=== PATIENT | male | born 1955 | race Caucasian/White ===

== ENCOUNTER → 2017-01-06 | Outpatient (CLI) | payer OTHER, BC ==
[~2017-01-06] MED LIST: CYCLOBENZAPRINE5 MG PO; FOLIC ACID1 MG PO; LIPITOR10 MG PO; METHOTREXATE2.5 MG PO; MIRAPEX0.5 MG PO; MOBIC15 MG PO; NORCO 5-325 TA1 EACH PO; PRILOSEC20 MG PO; PRINIVIL (ZESTR20 MG PO; TYLENOL EXTRA500 MG PO
== END | disposition disaster alternative care site (69) ==
LOC: GRAD 13:00
DX: M54.2 Cervicalgia (principal); M43.12 Spondylolisthesis, cervical region; M48.02 Spinal stenosis, cervical region; E04.2 Nontoxic multinodular goiter

== ENCOUNTER 2017-02-04 06:16 | Day surgery (SDC) | payer OTHER, BC ==
[~2017-02-04] VITALS: Ht 180.3 cm; Wt 60.7 kg
--- NOTE | ~2017-02-04 | DS ---
PATIENT'S NAME: CHIVO LOPEZ [facility] AGE: 61 Y [address] ROOM: [place] [address] LOCATION: [facility] [place] ADMIT DATE: 02/04/2017 Discharge Summary DISCHARGE DATE: 02/05/2017 FAMILY PHYSICIAN: Physician, Unknown ATTENDING PHYSICIAN: Candy Mancera REASON FOR ADMISSION: The patient was admitted electively for a scheduled procedure. The patient had presented with neck pain radiating down his upper and lower extremities. 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 Imaging studies showed subluxation of C3 on C4 with spinal stenosis and spinal cord compression. TREATMENT RENDERED: The patient was taken to the operating room and underwent anterior cervical diskectomy and fusion at C3-4. The surgery was uncomplicated. His postoperative course has been very gratifying. His pain has resolved, and he is ambulating independently. His incision is healing well. Postoperative MRI shows satisfactory decompression at C3-4 where he had the stenosis. The patient is ready to be released today and has been discharged home. I will follow him up in 2 weeks' time in Neurosurgery [facility] with repeat x-rays to confirm that the fusion is progressing satisfactorily. MD JANIE LIZARRAGAO/modl /[id number] d: 02/05/17 1354 t: 02/06/17 2249, DISCHARGE SUMMARY
--- NOTE | ~2017-02-04 | OR ---
PATIENT'S NAME: CHIVO LOPEZ [facility] AGE: 61 Y [address] ROOM: [place] [address] LOCATION: G3 ADMIT DATE: 02/04/2017 OR/Procedure Report DISCHARGE DATE: FAMILY PHYSICIAN: PHYSICIAN, UNKNOWN ATTENDING PHYSICIAN: Candy Mancera SURGEON: Candy Mancera MD STEEL DIE PRINTER: Raine Mccall RN. DATE OF PROCEDURE: 02/04/2017 PREOPERATIVE DIAGNOSES: 1. Cervical subluxation at C3-4. 2. Cervical spinal stenosis and spinal cord compression at C3-C4. POSTOPERATIVE DIAGNOSES: 1. Cervical subluxation at C3-4. 2. Cervical spinal stenosis and spinal cord compression at C3-C4. PROCEDURES PERFORMED: 1. Application of cervical traction with Alcocer-Wells tongs for closed reduction of cervical spine. 2. Anterior cervical diskectomy with decompression of neural elements and foraminotomy at C3-4. 3. Structural allograft fusion and morcellized allograft fusion at C3-4. 4. Use of anterior cervical plate by [employer] [place]. 5. Use of operative microscope. ANESTHESIA: General. ANESTHESIA PROVIDER: Amado Arroyo MD HISTORY: The patient is a 61-year-old male who presented with neck pain radiating down his upper extremities as far as the elbow. Imaging studies showed cervical spinal stenosis with spinal cord compression as a result of subluxation at the C3-4 level. The patient was myelopathic with increased reflexes in all limbs. Surgery was recommended to alleviate the spinal cord compression and treat the subluxation. The above procedures, benefits, and risks were discussed with the patient. With his consent, he was brought to the operating room for surgery. PROCEDURE IN DETAIL: In the operating room, the patient was placed in a supine position. Anesthesia was induced and he was intubated. Cervical traction was applied with Alcocer-Wells tongs. A total of 15 pounds weight was attached to the traction. The incision line was marked out on the PATIENT'S NAME: CHIVO LOPEZ [facility] AGE: 61 Y [address] ROOM: [place] [address] LOCATION: [facility] ADMIT DATE: 02/04/2017 OR/Procedure Report DISCHARGE DATE: FAMILY PHYSICIAN: PHYSICIAN, UNKNOWN ATTENDING PHYSICIAN: Candy Mancera anterior surface of the right sternomastoid muscle and the whole area was prepped and draped in a sterile fashion. Local anesthesia was infiltrated. The #15 blade was used to open the skin. The platysma was divided. The anterior border of the sternomastoid muscle was explored until the omohyoid muscle was visible. Dissecting in a plane medial to the carotid artery, but lateral to the esophagus and trachea, a pathway was developed to the anterior surface of the spine. The [employer] handheld retractors were used to help with dissection and visualization. On arrival at the anterior surface of the spine, we could see the prominent C3 vertebra, which was a subluxed one. An x-ray was taken to verify that this was indeed the correct level. The longus colli muscle on each side was undermined and the belt loop cutter retractors were applied. The diskectomy was carried out in the usual fashion by incising the disk with a #15 blade and using the curette to pull out disk material. The curette was used to scrape out more disk, which was removed with a pituitary rongeur. The microscope was brought in at this point, and under microscopic vision, the depths of the disk space were explored. The distraction pins were used to open up the disk space. The posterior longitudinal ligament was very thick and it took a bit of effort to safely divide it until we got to the dura. [place] rongeur was then used to remove the beats of the ligament at C3 and C4. Decompression continued as I felt that the dura was satisfactorily decompressed. The inferior surface of C3 and the superior surface of C4 were then drilled down to expose the bone underneath the endplates. Appropriate-sized piece of allograft bone was selected and the allograft bone was filled with demineralized bone matrix. The bone was then inserted into the C3-4 disc space. Next, appropriate anterior cervical plate was selected and 2 screws were affixed through the plate into C3 and 2 screws into C4. We had a very secure fit. Irrigation was used to wash out the debris and hemostasis was achieved. The incision was closed in layers using appropriate suture materials. A sterile dressing was applied. The patient's anesthesia was reversed. He was extubated and taken to the recovery room to complete his recovery. I was present and performed every aspect of this procedure, assisted at different times by operating room nurses. There were no apparent intraoperative complications. Swabs, needles, and instruments were all accounted for at the end of the case. Estimated blood loss was less than 100 mL. There was no reason for blood transfusion. I expect that this procedure will decompress the patient's spinal stenosis, but I told him he might still need a posterior PATIENT'S NAME: CHIVO LOPEZ [facility] AGE: 61 Y [address] ROOM: [address] [address] LOCATION: [facility] ADMIT DATE: 02/04/2017 OR/Procedure Report DISCHARGE DATE: FAMILY PHYSICIAN: PHYSICIAN, UNKNOWN ATTENDING PHYSICIAN: Candy Mancera approach if adequate decompression was not achieved. The patient did well from this procedure. I will see how he does not follow up. MD MARILEE LIZARRAGA/jess /[id number] d: 02/05/17 1005 t: 02/06/17 2247, OPERATIVE SUMMARY
[~2017-02-04 06:16] MED LIST changes: -NORCO 5-325 TA1 EACH PO; -TYLENOL EXTRA500 MG PO
[2017-02-05] MEDS ORDERED: NORCO 5-325 TA1 EACH PO (09:43)
[2017-02-28] MEDS ORDERED: TYLENOL EXTRA500 MG PO (17:40)
== END 2017-02-05 10:45 | disposition disaster alternative care site (69) ==
LOC: G3N 06:16 → GSDC 06:16 → G3N 12:50 → GSDC 02-05 10:45
PROC: 2W60X0Z Traction of Head using Traction Apparatus (ICD-10-PCS; principal; 2017-02-04)
PROC: 0RG10K0 Fusion of Cervical Vertebral Joint with Nonautologous Tissue Substitute, Anterior Approach, Anterior Column, Open Approach (ICD-10-PCS; 2017-02-04)
PROC: 2W60X0Z Traction of Head using Traction Apparatus (ICD-10-PCS; 2017-02-04)
DX: M50.01 Cervical disc disorder with myelopathy, high cervical region (principal); M48.02 Spinal stenosis, cervical region; G95.20 Unspecified cord compression; I10 Essential (primary) hypertension; E78.5 Hyperlipidemia, unspecified; K21.9 Gastro-esophageal reflux disease without esophagitis; F41.9 Anxiety disorder, unspecified; G25.81 Restless legs syndrome; M85.80 Other specified disorders of bone density and structure, unspecified site; Z86.718 Personal history of other venous thrombosis and embolism; Z88.1 Allergy status to other antibiotic agents; Z79.899 Other long term (current) drug therapy; Z98.890 Other specified postprocedural states
CPT/HCPCS: C1713; J0131; J0690; J1100; J2001; J2250; J2270; J2405; J3010; J7030